=== PATIENT | male | born 2000 | race Caucasian/White ===

== ENCOUNTER 2021-12-12 18:39 | Inpatient (IN) | payer MEDICAID, OTHER ==
[~2021-12-12] VITALS: Ht 172.7 cm; Wt 74.8 kg
[2021-12-12] MEDS ORDERED: LORAZEPAM INJ 2 MG/ML VIAL ONE ×2 (19:10→23:16)
--- NOTE | 2021-12-12 19:21 | NUR ---
URINE COLLECTED VIA IN AND OUT.
--- NOTE | 2021-12-12 19:24 | NUR ---
COVID SWAB COLLECTED AND SENT TO LAB.
[2021-12-12] MEDS ORDERED: LORAZEPAM INJ 2 MG/ML VIAL IM ONE ×2 (19:30→21:30)
--- NOTE | 2021-12-12 20:03 | NUR ---
[place] [id number] [id number]
[2021-12-12] MEDS ORDERED: OLANZAPINE 10 MG VIAL IM ONE ×2 (20:19→20:30)
--- NOTE | 2021-12-12 20:37 | NUR ---
GENERAL REPAIR MECHANIC AT BEDSIDE FOR BLOOD DRAW.
[2021-12-12 20:49] LABS: BASOPHILS % (AUTO) 0.2 % (0.0-2.0); HEMATOCRIT 47 % (39-51); HEMOGLOBIN 16.1 g/dL (13.5-17.5); LYMPHOCYTES # (AUTO) 0.8 K/uL (0.8-4.8); LYMPHOCYTES % (AUTO) 4.8 % (20.0-44.0); MEAN CORPUSCULAR HGB CONC 35 g/dl (31.0-36.0); MEAN CORPUSCULAR VOLUME 90 fL (80-96); MONOCYTES # (AUTO) 1.1 K/uL (0.1-1.30); MONOCYTES % (AUTO) 6.3 % (2.0-12.0); NEUTROPHILS # (AUTO) 15.2 K/uL (1.8-8.9); NEUTROPHILS % (AUTO) 88.7 % (43.0-81.0); PLATELET COUNT (AUTO) 334 K/uL (150-450); RED BLOOD CELL COUNT(AUTO) 5.18 MIL/uL (4.5-6.0); WHITE BLOOD COUNT (AUTO) 17.2 K/uL (4.3-11.0)
[2021-12-12 21:01] LABS: BILIRUBIN,URINE NEGATIVE (NEGATIVE); COLOR,URINE LIGHT YELLOW (YELLOW); LEUKOCYTE ESTERASE ,URINE NEGATIVE (NEGATIVE); NITRITE, URINE NEGATIVE (NEGATIVE); PH,URINE 6.5 (5.0-8.0); PROTEIN,URINE NEGATIVE (NEGATIVE); UGLUCOSE NEGATIVE (NEGATIVE); UROBILINOGEN,URINE 0.2 EU/dL (0.2)
[2021-12-12 21:10] LABS: ALANINE AMINOTRANSFERASE 28 U/L (12-78); ALCOHOL, BLOOD 16 mg/dL (0-0); ALKALINE PHOSPHATASE 79 U/L (46-116); ASPARTATE AMINOTRANSFERASE 20 U/L (15-37); BILIRUBIN,DIRECT 0.3 mg/dL (0.0-0.2); BILIRUBIN,TOTAL 1.5 mg/dL (0.2-1.0); CALCIUM, SERUM 9.5 mg/dL (8.5-10.1); CARBON DIOXIDE 21 mmol/L (21-32); CHLORIDE 101 mmol/L (98-107); CREATININE 1.3 mg/dL (0.6-1.3); GLUCOSE 97 mg/dL (74-106); POTASSIUM 3.1 mmol/L (3.5-5.1); SODIUM SERUM 138 mmol/L (136-145); TOTAL PROTEIN, SERUM 8.4 g/dL (6.4-8.2); UREA NITROGEN, BLOOD 8 mg/dL (7-18)
[2021-12-12 21:11] LABS: ACETAMINOPHEN 0 ug/ml (10-30)
--- NOTE | 2021-12-12 21:16 | NUR ---
PER LAB, THEY RECIEVED COVID ANTIGEN SWAB
[2021-12-12] MEDS ORDERED: IV NS 0.9% 1,000 ML BAG IV ONE ×2 (21:30→22:30)
--- NOTE | 2021-12-12 21:52 | NUR ---
Lali mcarthur in ED - 12/12/21 at 2154 by SHIRLEY CALLED POISON CONTROL FOR ADVICE SPOKE TO PERLA, RECOMMENDED 1-2 GRAMS MAGNESIUM FOR EKG QT OVER 500, IF QRS IS OVER 120 GIVE BICARB BOLUS, CHECK ELECTROLYR
--- NOTE | 2021-12-12 21:55 | NUR ---
CALLED POISON CONTROL FOR ADVICE SPOKE TO PERLA, RECOMMENDED 1-2 GRAMS MAGNESIUM FOR EKG QT OVER 500, IF QRS IS OVER 120 GIVE BICARB BOLUS, CHECK ELECTROLYTES, GIVE BENZOS FOR AGITATION, GET CHEMISTRY LABS INCLUDING TYLENOL SCREEN
[2021-12-12] MEDS: POTASSIUM CHLORIDE 10 MEQ/50 ML PREMIXED IVPB FOR PERIPHERAL LINE IV SCH ×2 (22:07→23:13)
[2021-12-12 22:13] LABS: BACTERIA,URINE None seen /HPF (None Seen); SQUAMOUS EPITHELIAL CELL,UR Moderate /HPF (None Seen); WBC,URINE 0-2 /HPF (0-3)
[2021-12-12] MEDS ORDERED: Magnesium 1 GM/2 ML VIAL IV ONE (22:30)
[2021-12-12] MEDS ORDERED: Magnesium 1 GM/2 ML VIAL ONE (22:59)
[2021-12-12] MEDS ORDERED: POTASSIUM CL. PREMIX PERIPHER. 50 ML ONE (22:59)
[2021-12-13] VITALS (19 sets, daily range): BP systolic 129–174; BP diastolic 68–152
--- NOTE | 2021-12-13 | NUR ---
PT SEEN BY DAKOTA KNIGHT TECHNOLOGIST INFECTIOUS DISEASE
[2021-12-13] MEDS: POTASSIUM CHLORIDE 10 MEQ/50 ML PREMIXED IVPB FOR PERIPHERAL LINE IV SCH ×2 (01:00)
[2021-12-13] MEDS ORDERED: MAG HYDROX/AL HYDROX/SIMETH 30 ML UDC PO PRN (01:30)
[2021-12-13] MEDS ORDERED: ONDANSETRON HCL/PF 4 MG/2 ML VIAL IVP PRN (01:30)
[2021-12-13] MEDS ORDERED: Z GUARD REMEDY 4 OZ OINT TP PRN (01:30)
[2021-12-13] MEDS ORDERED: ACETAMINOPHEN 325 MG TABLET PO PRN (01:30)
[2021-12-13] MEDS ORDERED: LORAZEPAM INJ 2 MG/ML VIAL IV PRN (01:30)
[2021-12-13] MEDS ORDERED: MAGNESIUM HYDROXIDE 30 ML UDC PO PRN (01:30)
[2021-12-13 02:08] LABS: CALCIUM, SERUM 8.9 mg/dL (8.5-10.1); CARBON DIOXIDE 21 mmol/L (21-32); CHLORIDE 104 mmol/L (98-107); CREATININE 1.3 mg/dL (0.6-1.3); GLUCOSE 102 mg/dL (74-106); POTASSIUM 4.3 mmol/L (3.5-5.1); SODIUM SERUM 138 mmol/L (136-145); UREA NITROGEN, BLOOD 7 mg/dL (7-18)
[2021-12-13] MEDS: IV LR 1000 ML 1,000 ML IV PRN ×6 (02:55→23:30)
--- NOTE | 2021-12-13 06:12 | NUR ---
ADLS DONE; PT KEPT CLEAN AND DRY. LR #125ML/HR TO R AC #18G S/L CONTINUED. SAFETY 1:[address]
[2021-12-13 06:51] LABS: ALBUMIN 5.2 g/dL (3.4-5.0); BILIRUBIN,TOTAL 2.4 mg/dL (0.2-1.0); CALCIUM, SERUM 9.6 mg/dL (8.5-10.1); MAGNESIUM 2.3 mg/dL (1.8-2.4); POTASSIUM 3.8 mmol/L (3.5-5.1); TOTAL PROTEIN, SERUM 8.4 g/dL (6.4-8.2)
[2021-12-13 07:00] LABS: BASOPHILS # (AUTO) 0.1 K/uL (0.0-0.2); BASOPHILS % (AUTO) 0.4 % (0.0-2.0); HEMATOCRIT 46 % (39-51); HEMOGLOBIN 15.8 g/dL (13.5-17.5); LYMPHOCYTES # (AUTO) 1.4 K/uL (0.8-4.8); MEAN CORPUSCULAR HGB CONC 34 g/dl (31.0-36.0); MEAN CORPUSCULAR VOLUME 91 fL (80-96); MONOCYTES # (AUTO) 1.3 K/uL (0.1-1.30); MONOCYTES % (AUTO) 10.7 % (2.0-12.0); NEUTROPHILS # (AUTO) 9.8 K/uL (1.8-8.9); NEUTROPHILS % (AUTO) 77.9 % (43.0-81.0); PLATELET COUNT (AUTO) 284 K/uL (150-450); RED BLOOD CELL COUNT(AUTO) 5.06 MIL/uL (4.5-6.0); WHITE BLOOD COUNT (AUTO) 12.6 K/uL (4.3-11.0)
--- NOTE | 2021-12-13 07:13 | NUR ---
TROPONIN 262
--- NOTE | 2021-12-13 07:26 | NUR ---
ENDORSED JOMAR TO [facility]
--- NOTE | 2021-12-13 07:32 | NUR ---
Received pt from Hari HANLEY pt in [facility] ON [address] FOR ADANGER TO HIM SELF ONE TO ONE SITTER AT BED SIDE ( NERVY. SOMMERS ) pt resstless jewel for icu bed
--- NOTE | 2021-12-13 07:48 | NUR ---
REPORT GIVEN TO JACKELYN HANLEY FOR JOMAR
--- NOTE | 2021-12-13 07:55 | NUR ---
TO ICU ROOM 255 PT AWAKE NOT FALLOW COMMAND WITH ONE TO ONE SITTER SITTER 9 estelita jessica )
--- NOTE | 2021-12-13 08:00 | NUR ---
ICU/RN PT ADMITTED FROM ER. SUICIDAL IDEATION MEGHAN OD.AWAKE,ALERT-1.CONFUSED.V/S STABLE.T-102.NO PAIN REPORTED AT THIS TIME.IV-HL.PT AMBULATE,UNSTEADY GAIT.SITTER AT BED SIDED. LABS REVIEW. AWARE.CONTINUE MONITORING.
[2021-12-13] MEDS ORDERED: PANTOPRAZOLE 40 MG VIAL IV SCH (09:00)
--- NOTE | 2021-12-13 09:00 | NUR ---
ICU/RN DUE MEDS ARE GIVEN ORDERED.T-102.TYLENOL PO GIVEN .EKG ORDERED.
--- NOTE | 2021-12-13 10:04 | NUR ---
DC Planning to psych hospital: SS consult requested for DC planning to [facility] hospital once pt. is medically cleared. Per EMR, the pt. was placed on a 5150 hold for DTS after pt. intentionally OD on "a mouthful of Benadryl/ibuprofen unknown amount". Per EMR, the patient's girlfriend told police that patient stated he had been experiencing episodes of depression and wanted police to shoot him. SW notified patient's nurse, Dory who stated the pt. is not medically cleared at this time. SW notified nurse that SW is not available for discharge planning over the weekend. SW notified nurse that clinicals and 5150 hold to be faxed to the following psychiatric hospitals for placement and treatment when pt. is medically cleared. [facility] TEL:[phone] FAX:[phone] [facility] TEL:[phone] FAX:[phone] [facility] TEL: [phone] FAX: [phone] [facility] [place] TEL:[phone]; [phone] FAX: [phone]
--- NOTE | 2021-12-13 18:40 | NUR ---
ICU/RN PT IS RESTING IN THE BED .V/S STABLE,AFEBRILE.NO PAIN REPORTED AT THIS TIME PT EATS 75% FROM HIS MEAL TRAY.FAMILY AT BEDSIDE.MOTHER SHRADDHA HIDALGO PHONE # [phone].
[2021-12-14] VITALS (25 sets, daily range): BP systolic 131–168; BP diastolic 75–108
[2021-12-14 05:12] LABS: BASOPHILS % (AUTO) 0.5 % (0.0-2.0); EOSINOPHILS % (AUTO) 1.2 % (0.0-6.0); HEMATOCRIT 47 % (39-51); HEMOGLOBIN 16.1 g/dL (13.5-17.5); LYMPHOCYTES # (AUTO) 1.9 K/uL (0.8-4.8); LYMPHOCYTES % (AUTO) 28.5 % (20.0-44.0); MEAN CORPUSCULAR HGB CONC 34 g/dl (31.0-36.0); MEAN CORPUSCULAR VOLUME 93 fL (80-96); MONOCYTES # (AUTO) 0.6 K/uL (0.1-1.30); MONOCYTES % (AUTO) 9.5 % (2.0-12.0); NEUTROPHILS % (AUTO) 60.3 % (43.0-81.0); PLATELET COUNT (AUTO) 234 K/uL (150-450); RED BLOOD CELL COUNT(AUTO) 5.08 MIL/uL (4.5-6.0); WHITE BLOOD COUNT (AUTO) 6.6 K/uL (4.3-11.0)
[2021-12-14 05:25] LABS: CALCIUM, SERUM 9.2 mg/dL (8.5-10.1); CREATININE 1.1 mg/dL (0.6-1.3); MAGNESIUM 2.3 mg/dL (1.8-2.4); PHOSPHORUS 3.7 mg/dL (2.5-4.9); POTASSIUM 4.1 mmol/L (3.5-5.1)
--- NOTE | 2021-12-14 06:16 | NUR ---
REHABILITATION WORKER PT COMPLIANT WITH ALL TREATMENTS AND PLAN OF CARE; PT SUPERVISED HE WALKED TO RESTOOM AND BRUSHED HIS TEETH.
[2021-12-14] MEDS: PANTOPRAZOLE 40 MG TABLET.DR PO SCH (07:41)
--- NOTE | 2021-12-14 07:56 | NUR ---
ICU/RN: Pt. resting comfortably in bed. remains AAOx4. Sitter remains at bedside secondary to SI. VSS, No Respiratory Distress noted. eating Breakfast at this time. Cont with plan of care
[2021-12-14] MEDS: IV LR 1000 ML 1,000 ML IV PRN ×2 (08:49→16:47)
--- NOTE | 2021-12-14 23:22 | NUR ---
NANOELECTRONICS ENGINEER PT TRANSFERRED TO MED SURG 312-2 REPORT GIVEN BY CHARGE NURSE.
--- NOTE | 2021-12-14 23:45 | NUR ---
RN opening notes Received Pt from ICU. Received report from a charge nurse. Pt is alert and orientedX4, and calm. Pt is 1:1. 5150 status. Sitter Farooq at the bedside. On room air. No SOB. No S/S of distress noted. Pt denies SI at this time. VS is stable. Iv site at RAC # 18 is clean, intact and SL. IV site at LAC# 20 is clean, intact and SL. [place] Pt to the room and the use of call light. Pt verbalized understanding. safety precautions is maintained. Bed at low position, brakes locked, side rails upX2. hob elevated and call light is within reach. Will continue to monitor.
[2021-12-15] VITALS: BP 156/86
--- NOTE | 2021-12-15 00:35 | NUR ---
RN notes Pt is requesting for snacks. Snacks is provided and given to Pt. Sitter at the bedside. Will continue to monitor.
[2021-12-15] MEDS: IV LR 1000 ML 1,000 ML IV PRN ×2 (01:41→17:46)
--- NOTE | 2021-12-15 06:30 | NUR ---
RN closing notes Pt is resting in bed comfortably. Pt is alert and orientedX4. Damian Trivedi at the bedside. On room air. No SOB. No S/S of distress noted. Vs is stable. Pt denies SI at this time. VS is stable. Iv site at RAC # 18 is clean, intact and infusing well LR. IV site at LAC# 20 is clean, intact and SL. Kept Pt clean, dry and comfortable. safety precautions is maintained. Bed at low position, brakes locked, side rails upX2. hob elevated and call light is within reach. Will endorse to am nurse for JOMAR.
--- NOTE | 2021-12-15 07:09 | NUR ---
MS HANLEY OPENING NOTES RECEIVED PATIENT AWAKE IN BED, ON ROOM AIR NO S/S OF RESPIRATORY DISTRESS OR DISCOMFORT. PATIENT IS A/O x3-4. IV ACCESS LAC #20G AND RAC #18G RUNNING NS 125 ML/HR. INTACT AND PATENT. NO S/S OF CARDIAC DISTRESS OR DISCOMFORT. SKIN IS INTACT. AMBULATORY AND HAS BRP. ON 5150 THAT IS ENDING 12/15 @ 1900. SAFETY MEASURES IN PLACE: BED IN LOWEST POSITION AND LOCKED, SIDE RAILS UP x2, CALL LIGHT WITHIN REACH, BED ALARM ON, SITTER IN ROOM WITH PATIENT. WILL CONTINUE TO MONITOR. Addendum: 12/15/21 at 1841 by RAHEL HILARIO RN ADDENDUM: PATIENT HAS LR RUNNING NOT NS
[2021-12-15] MEDS ORDERED: PANTOPRAZOLE 40 MG TABLET.DR PO SCH (07:30)
[2021-12-15] MEDS: PANTOPRAZOLE 40 MG TABLET.DR PO SCH (07:41)
[2021-12-15 09:00] VITALS: BP 148/88
--- NOTE | 2021-12-15 18:40 | NUR ---
MS RN CLOSING NOTES PATIENT AWAKE IN BED GIRLFRIEND AT BEDSIDE, STABLE ON ROOM AIR NO S/S OF RESPIRATORY DISTRESS OR DISCOMFORT. PATIENT IS A/O x4. IV ACCESS LAC #20G AND RAC #18G RUNNING LR 125 ML/HR. INTACT AND PATENT. NO S/S OF CARDIAC DISTRESS OR DISCOMFORT. SKIN IS INTACT. AMBULATORY AND HAS BRP. ALL PRESCRIBED MEDICATION ADMINISTERED. SAFETY MEASURES MAINTAINED: BED IN LOWEST POSITION AND LOCKED, SIDE RAILS UP x2, CALL LIGHT WITHIN REACH, BED ALARM ON, SITTER IN ROOM WITH PATIENT. WILL ENDORSE TO NEXT SHIFT ANY JOMAR.
--- NOTE | 2021-12-15 19:30 | NUR ---
MS RN OPENING NOTES RECEIVED PATIENT AWAKE IN BED, ON ROOM AIR NO S/S OF RESPIRATORY DISTRESS OR DISCOMFORT. PATIENT IS A/O 4. IV ACCESS LAC #20G AND RAC #18G RUNNING LR 125 ML/HR. INTACT AND PATENT. NO S/S OF CARDIAC DISTRESS OR DISCOMFORT. SKIN IS INTACT. AMBULATORY AND HAS BRP. SAFETY MEASURES IN PLACE: BED IN LOWEST AND LOCKED POSITION, SIDE RAILS UP x2, CALL LIGHT WITHIN REACH, BED ALARM ON, SITTER IN ROOM WITH PATIENT. FAMILY MEMBER AT BEDSIDE. WILL CONTINUE TO MONITOR.
[2021-12-15 21:00] VITALS: BP 151/90
[2021-12-16] MEDS: IV LR 1000 ML 1,000 ML IV PRN ×2 (02:02→16:27)
--- NOTE | 2021-12-16 06:46 | NUR ---
MS RN CLOSING NOTES PATIENT SLEEPING IN BED BUT EASILY AROUSABLE TO TOUCH AND VOICE, ON ROOM AIR NO S/S OF RESPIRATORY DISTRESS OR DISCOMFORT. PATIENT IS A/O 4. IV ACCESS LAC #20G AND RAC #18G RUNNING LR 125 ML/HR. INTACT AND PATENT. NO S/S OF CARDIAC DISTRESS OR DISCOMFORT. SKIN IS INTACT. AMBULATORY AND HAS BRP. SAFETY MEASURES IN PLACE, 1:1 SITTER DARCIE ON BEDSIDE, V/S TAKEN AND RECORDED, ALL NEEDS ATTENDED, BED IN LOWEST AND LOCKED POSITION, SIDE RAILS UP x2, CALL LIGHT WITHIN REACH, BED ALARM ON, WILL ENDORSE TO AM SHIFT NURSE.
--- NOTE | 2021-12-16 07:09 | NUR ---
MS RN OPENING NOTES RECEIVED PATIENT AWAKE IN BED, ON ROOM AIR NO S/S OF RESPIRATORY DISTRESS OR DISCOMFORT. PATIENT IS A/O x3-4. IV ACCESS LAC #20G AND RAC #18G RUNNING LR 125 ML/HR. INTACT AND PATENT. NO S/S OF CARDIAC DISTRESS OR DISCOMFORT. SKIN IS INTACT. AMBULATORY AND HAS BRP. ON 14 DAY HOLD. SAFETY MEASURES IN PLACE: BED IN LOWEST POSITION AND LOCKED, SIDE RAILS UP x2, CALL LIGHT WITHIN REACH, BED ALARM ON, SITTER IN ROOM WITH PATIENT. WILL CONTINUE TO MONITOR.
[2021-12-16] MEDS: PANTOPRAZOLE 40 MG TABLET.DR PO SCH (07:58)
[2021-12-16 09:08] VITALS: BP 147/80
--- NOTE | 2021-12-16 14:11 | NUR ---
SS Consult requested for WRIT paperwork. Pt. is a 21-year-old pt. is was admitted to [facility] on 12/13/2021 due to a toxic overdose. Pt. has been placed on a 52/50 hold. Pt. states that he does not want to be placed on a 14-day hold. Pt. states he wants to contest his hold. Pt. expressed concerns with his diagnosis of bipolar disorder. Pt. expressed financial concerns and stated he needed to work. meeting/event planner explained that the pt. can request a WRIT hearing to contest his 52/50 hold. meeting/event planner provided WRIT paperwork to the pt. Pt. signed the paperwork. Pt. and meeting/event planner signed the paperwork. meeting/event planner faxed the paperwork to the [facility] ([phone]). meeting/event planner called the [facility] ([phone]) and they confirmed they received the fax. meeting/event planner will remain available as needed.
--- NOTE | 2021-12-16 18:54 | NUR ---
MS RN CLOSING NOTES PATIENT AWAKE IN BED, STABLE ON ROOM AIR NO S/S OF RESPIRATORY DISTRESS OR DISCOMFORT. PATIENT IS A/O x4. IV ACCESS LAC #20G AND RAC #18G RUNNING LR 125 ML/HR. INTACT AND PATENT. NO S/S OF CARDIAC DISTRESS OR DISCOMFORT. SKIN IS INTACT. AMBULATORY AND HAS BRP. ALL PRESCRIBED MEDICATION ADMINISTERED. SAFETY MEASURES MAINTAINED: BED IN LOWEST POSITION AND LOCKED, SIDE RAILS UP x2, CALL LIGHT WITHIN REACH, BED ALARM ON, SITTER IN ROOM WITH PATIENT. WILL ENDORSE TO NEXT SHIFT ANY JOMAR.
--- NOTE | 2021-12-16 19:24 | NUR ---
MS RN OPENING NOTES RECEIVED PATIENT IN BED AAOX4 RAFAL WEEL ON RM AIR NO SIGN SOB/DISTRESS NOTED.IV ACCESS LAC #20G AND RAC #18G RUNNING LR 125 ML/HR. INTACT AND PATENT.SITTER IN ROOM WITH PT.SAFETY MEASURES IN PLACE: BED IN LOWEST POSITION AND LOCKED, SIDE RAILS UP x2, CALL LIGHT WITHIN REACH,WILL CONTINUE TO MONITOR.
[2021-12-16 21:00] VITALS: BP 143/80
--- NOTE | 2021-12-17 06:26 | NUR ---
MS RN OPENING NOTES PATIENT IN BED AAOX4 RAFAL WELL ON RM AIR NO SIGN SOB/DISTRESS NOTED.IV ACCESS LAC #20G AND RAC #18G RUNNING LR 125 ML/HR. INTACT AND PATENT.SITTER IN ROOM WITH PT.SAFETY MEASURES IN PLACE: BED IN LOWEST POSITION AND LOCKED, SIDE RAILS UP x2, CALL LIGHT WITHIN REACH,WILL ENDORSED TO NEXT SHIFT.
--- NOTE | 2021-12-17 06:42 | NUR ---
MS RN CLOSING NOTES PATIENT IN BED AAOX4 RAFAL WELL ON RM AIR NO SIGN SOB/DISTRESS NOTED.IV ACCESS LAC #20G AND RAC #18G RUNNING LR 125 ML/HR. INTACT AND PATENT.SITTER IN ROOM WITH PT.SAFETY MEASURES IN PLACE: BED IN LOWEST POSITION AND LOCKED, SIDE RAILS UP x2, CALL LIGHT WITHIN REACH,WILL ENDORSED TO NEXT SHIFT.
--- NOTE | 2021-12-17 07:20 | NUR ---
MS RN OPENING NOTES RECEIVED PATIENT IN BED, AWAKE. A/O X4. ON RA WITH BREATHING EVEN AND UNLABORED. NO ACUTE DISTRESS NOTED. WENT OVER PLAN OF CARE WITH PATIENT. CONTINUES ON A PSYCH HOLD. PATIENT CURRENTLY DENIES SUICIDAL THOUGHTS OR INTENTIONS. DENIES HAVING A PLAN. SITTER AT BEDSIDE. LAC #20G AND RAC #18G RUNNING LR 125 ML/HR. NO S/SX OF INFILTRATION AT SITE NOTED. SAFETY MEASURES IN PLACE. WILL CONTINUE TO MONITOR
[2021-12-17] MEDS: PANTOPRAZOLE 40 MG TABLET.DR PO SCH (07:55)
[2021-12-17] MEDS: IV LR 1000 ML 1,000 ML IV PRN (08:47)
[2021-12-17 09:00] VITALS: BP 130/76
--- NOTE | 2021-12-17 16:45 | NUR ---
pt seen by dr. Grimm today, dc hold order received. Addendum: 12/17/21 at 1811 by KENDALL GALEANO clarification: seen by dr. Maciel psychiatrist.
--- NOTE | 2021-12-17 17:47 | NUR ---
dr. Hudson informed about discontinued 5250 hold, new order received to discharge pt home with pmd follow up in 2 to 3 days.
--- NOTE | 2021-12-17 18:05 | NUR ---
ASSISTANT PROFESSOR OF PHILOSOPHY NOTES PATIENT MEDICALLY STABLE FOR DISCHARGE. DENIES SUICIDAL THOUGHTS OR INTENTIONS TO HARM SELF/OTHERS. DISCHARGE INSTRUCTIONS PROVIDED AND PATIENT VERBALIZED UNDERSTANDING. EXIT CARE PACKET PROVIDED. SKIN CLEAR AND INTACT. ALL BELONGINGS ACCOUNTED FOR AND DOCUMENTS SIGNED. IV ACCESS REMOVED, PRESSURE GAUZE AND TAPE APPLIED TO DIRECT SITE. ID BAND REMOVED. PATIENT LEFT HOSPITAL ACCOMPANIED BY SELF.
== END 2021-12-17 18:36 | disposition home or self-care (01) | DRG 817 ==
LOC: EDBD 18:40 → ER 18:40 → TRANSITION 12-13 01:24 → ICU 12-13 07:35 → MED 12-14 23:09
PROVIDERS: ADMIT Nurse Practitioner Family; ATTEND Internal Medicine
DX: T45.0X2A Poisoning by antiallergic and antiemetic drugs, intentional self-harm, initial encounter (principal); R45.851 Suicidal ideations; E87.6 Hypokalemia; E80.6 Other disorders of bilirubin metabolism; T39.312A Poisoning by propionic acid derivatives, intentional self-harm, initial encounter; D72.829 Elevated white blood cell count, unspecified; T44.3X2A Poisoning by other parasympatholytics [anticholinergics and antimuscarinics] and spasmolytics, intentional self-harm, initial encounter; Y92.009 Unspecified place in unspecified non-institutional (private) residence as the place of occurrence of the external cause; F43.9 Reaction to severe stress, unspecified; F31.30 Bipolar disorder, current episode depressed, mild or moderate severity, unspecified; F39 Unspecified mood [affective] disorder; Z20.822 Contact with and (suspected) exposure to COVID-19
CPT/HCPCS: 36415; 71045-TC; 80048-TC; 80053-TC; 80076-TC; 81001; 83605-TC; 83735-TC; 84100-TC; 84484-TC; 85025-TC; 87081-TC; 93307-TC; C9113; C9803; G0378; G0480; J2060; J2405; J3475; J3480; J3490; J7030; J7120